=== PATIENT | female | born 1985 | race Caucasian/White ===

== ENCOUNTER 2018-01-16 11:08 | Emergency (ER) | payer OTHER, SELFPAY ==
--- NOTE | 2018-01-16 | DI.US.S_ITS ---
PROCEDURE: US PELVIC COMPLETE INDICATIONS: LEFT PELVIC PAIN TECHNIQUE: Real-time scanning was performed of the pelvic organs, with image documentation. Additional endovaginal scanning was necessary due to incomplete visualization of the adnexal and endometrial structures by transabdominal scanning. COMPARISON: None. FINDINGS: Transabdominal scanning: Limited scanning through the kidneys shows no hydronephrosis. No pathologic free abdominal or pelvic fluid. Endovaginal scanning: Uterus: Uterus is normal in size at 3.3 x 4.9 x 7.8 cm, anteverted. The endometrium measures 5.5 mm in combined thickness. Ovaries: The right ovary measures 2.1 x 1.7 x 2.9 cm, and the left measures 2.1 x 2.6 x 3.5 cm with a minimally complex internal 2.3 cm maximum dimension cyst. No solid lesions are found. IMPRESSION: Normal-appearing uterus and right ovary, minimally complex left ovarian cyst measures up to 2.3 cm in maximal dimension. No abnormal free fluid is seen throughout the peritoneal space. Dictated by: Mohamud Wellington M.D. on 01/16/2018 at 13:09 Approved by: Mohamud Wellington M.D. on 01/16/2018 at 13:11
[2018-01-16 11:20] VITALS: BP 115/63; PULSE 71; RESP 18; TEMP 36.6; O2SAT 100; BMI 23.6
[2018-01-16 11:56] LABS: Bacteria Urine None Seen
[2018-01-16] MEDS: SODIUM CHLORIDE 0.9% 1,000 ML 1000 ML IV (11:57)
[2018-01-16] MEDS: KETOROLAC 15 MG/ML VIAL IV (11:57)
[2018-01-16] MEDS: ONDANSETRON 4 MG/2 ML INJ IV (11:57)
--- NOTE | 2018-01-16 12:05 | DI.US.S_ITS ---
PROCEDURE: US RENAL COMPLETE INDICATIONS: L flank pain, hematuria, stone? TECHNIQUE: Real-time scanning was performed of the kidneys and bladder, with image documentation. COMPARISON: None. FINDINGS: Kidneys: Kidneys are normal in size. Right kidney measures 10.9 cm long; left kidney measures 12.0 cm long. Right renal cortical thickness is 1.4 cm; left renal cortical thickness is 1.5 cm. Renal cortical echotexture is normal. No hydronephrosis or nephrolithiasis. No suspicious solid mass lesions. Bladder: Pre-void bladder volume is 59 mL. Post-void residual is 0 mL. Pre-void images demonstrate no intraluminal masses or stones. On pre-void images, neither ureteral jets are noted with color Doppler interrogation. (Of note, ureteral jets may not be detectable in up to 25% of cases due to insufficient differences in specific gravity between ureteral and bladder urine). Miscellaneous: No free pelvic fluid. IMPRESSION: No hydronephrosis or nephrolithiasis found. Normal bladder function. Source of pain is not seen. Dictated by: Mohamud Wellington M.D. on 01/16/2018 at 13:08 Approved by: Mohamud Wellington M.D. on 01/16/2018 at 13:09
--- NOTE | 2018-01-16 12:06 | PC.NURSE ---
Pain started on Saturday in left flank. could not get comfortable. Saw PA who ordered CT scan. Awaiting authorization for CT but pain is now LLQ. Hurts more to move. Poor appetite, decreased po intake.
[2018-01-16 12:09] LABS: Amorphous Sediment Urine 2+; Culture Indicated Urine Cult Not Indicated; RBC Urine 0-1/HPF (0-5/HPF); Squamous Epithelial Cell Urine 0-1 /HPF; WBC Urine 0-1/HPF (0-5/HPF)
[2018-01-16 12:09] LABS: Add Manual Diff / Slide Review NO; Basophils Percent Auto 0.4 % (0-2); Eosinophils Percent Auto 0.1 % (2-4); Hematocrit 39.6 % (36-46); Hemoglobin 13.8 g/dL (12.0-16.0); Mean Corpuscular HGB Conc 34.7 % (30-36); Mean Corpuscular Hemoglobin 31.2 PG (26-34); Mean Corpuscular Volume 89.9 fL (80-100); Neutrophils Absolute Auto 11300 /uL (3000-5900); Neutrophils Percent Auto 80.5 % (50-75); Platelet Count 208 X10^3/uL (150-400); Red Blood Cell Count 4.41 X10^6/uL (4.0-5.2); Red Cell Distribution Width 11.9 % (11.6-14.8)
[2018-01-16 12:21] LABS: Blood Urea Nitrogen 13 mg/dL (7-17); Calcium 9.3 mg/dL (8.4-10.2); Carbon Dioxide 24 mmol/L (22-32); Chloride 101 mmol/L (98-107); Estimated Glomerular Filt Rate > 60.0 mL/min (>60); Glucose 88 mg/dL (70-100); HEMOLYSIS 44 (0-50); Potassium 4.3 mmol/L (3.4-5.1); Sodium 140 mmol/L (137-145)
[2018-01-16 12:44] VITALS: BP 114/52; PULSE 72; RESP 16; O2SAT 99
--- NOTE | 2018-01-16 19:18 | ED_ITS ---
HPI - Female Genitourinary General Chief complaint: Urogenital-Female Stated complaint: LEFT PELVIS PAIN Time Seen by Provider: 01/16/18 11:40 Source: patient Mode of arrival: ambulatory Limitations: no limitations History of Present Illness HPI Narrative: Patient presents to the emergency department today with a chief complaint of left flank pain that has radiated into her left groin. She denies any injury nor fever or chills. She denies dysuria, frequency or urgency. She was seen at the walk-in clinic and had blood in her urine and had an outpatient CT ordered for CT scan. She states at times the pain is very intense than others is rather mild. She denies provocation or palliation of the pain, stating it has gotten line of its own. Her left lower quadrant pain became much more severe today and she is on clear if they are related MD Complaint: pelvic pain Onset (ago): day(s) Location: LLQ Female Urogenital Radiation: L Flank Severity: moderate Quality: Burning Duration: intermittent Relieving factors: none Exacerbating factors: none Associated symptoms: fever/chills Related Data Previous Rx's Medication Instructions Recorded hydrocodone-acetaminophen 1 tab PO Q4-6H PRN #14 tab 01/16/18 ketorolac 10 mg PO Q6H #14 tab 01/16/18 ondansetron [Zofran ODT] 4 mg PO Q6H PRN #20 tab 01/16/18 Allergies Allergy/AdvReac Type Severity Reaction Status Date / Time No Known Drug Allergies Allergy Verified 01/16/18 11:19 Review of Systems Review of Systems All systems reviewed & are unremarkable except as noted in HPI and below Constitutional Denies chills, Denies fever(s), Denies lethargy and Denies weakness Eyes Denies change in vision, Denies eye discharge, Denies irritation and Denies loss of vision ENT Ears, Nose, Mouth, and Throat: Denies change in voice, Denies neck pain and Denies sore throat Cardiovascular Denies chest pain, Denies irregular heart rhythm, Denies lightheadedness, Denies palpitations, Denies dyspnea, Denies dyspnea on exertion and Denies orthopnea Respiratory Denies cough, Denies dyspnea, Denies dyspnea on exertion and Denies wheezing Gastrointestinal Gastrointestinal: Reports abdominal pain, Denies change in bowel habits, Denies diarrhea, Denies nausea and Denies vomiting Genitourinary Denies hematuria, Denies flank pain, Denies urinary incontinence and Denies urinary urgency Musculoskeletal Denies neck pain Integumentary/Breasts Denies pruritus, Denies erythema, Denies rash and Denies wounds Neurologic Denies confusion, Denies loss of vision and Denies weakness Psychiatric Denies anxiety, Denies confusion, Denies depression, Denies homicidal ideation and Denies suicidal ideation Endocrine Denies palpitations Hematologic/Lymphatic Denies easy bruising Allergic/Immunologic Denies wheezing [facility] Social History Smoking Status: Never smoker Exam Initial Vital Signs Initial Vital Signs: Vital Signs Temperature 97.8 F 01/16/18 11:20 Pulse Rate 71 01/16/18 11:20 Respiratory Rate 18 01/16/18 11:20 Blood Pressure 115/63 01/16/18 11:20 Pulse Oximetry 100 01/16/18 11:20 Const General: cooperative and well developed Nutritional Appearance: well nourished Orientation: alert, awake, oriented x3 and not confused HENMT Head: normocephalic and atraumatic Ears: external ears normal and TM's normal bilaterally Nose: external nose normal and No nasal discharge Face and sinus: sinuses nontender, face symmetric, no sinus tenderness and No dry mucous membranes Mouth: oral mucosae normal and moist mucous membranes Teeth and gingiva: dentition normal Throat: tonsils normal and uvula midline Resp Effort & Inspection: normal respiratory effort, able to speak in complete sentences, no respiratory distress and no use of accessory muscles Auscultation: clear to auscultation bilaterally, no rales, no rhonchi and no wheezes GI Inspection: non-distended Palpation: soft, no hepatosplenomegaly, No guarding, No pulsatile mass and tender (Mild tenderness in left lower quadrant) Auscultation: normal bowel sounds Back/Spine/Pelvis Back: No CVA tenderness Cervical Spine: cervical ROM normal and No pain with cervical ROM Thoracic/Lumbar Spine: thoracic and lumbar spine normal to inspection Skin General: no rashes or lesions noted, No jaundice and No petechiae Extrem General: full ROM, no clubbing, cyanosis or edema, no pedal edema and no calf tenderness Course Orders Ordered: ED Orders 01/16/18 11:41 Urine Microscopic Stat 01/16/18 11:55 Basic Metabolic Panel Stat Complete Blood Count AUTO DIFF Stat 01/16/18 12:05 US renal complete Stat Discontinued Medications Sodium Chloride (Normal Saline 0.9%) 1,000 mls @ 1,000 mls/hr IV BOLUS ONE Stop: 01/16/18 12:51 Last Infusion: 01/16/18 12:48 Dose: 0 mls/hr Admin: 01/16/18 11:57 Dose: 1,000 mls/hr Ketorolac Tromethamine (Toradol) 15 mg IV NOW ONE Stop: 01/16/18 11:53 Last Admin: 01/16/18 11:57 Dose: 15 mg Ondansetron HCl (Zofran) 4 mg IV Q4HR PRN PRN Reason: Nausea And Vomiting Last Admin: 01/16/18 11:57 Dose: 4 mg Vital Signs - 8 hr 01/16/18 11:20 01/16/18 12:44 Temperature 97.8 F Pulse Rate 71 72 Respiratory Rate 18 16 Blood Pressure 115/63 Blood Pressure [Left Arm] 114/52 L Pulse Oximetry 100 99 MDM - Female Genitourinary Differential Diagnosis Likely urinary tract infection, ovarian cyst and dysmenorrhea Medical Records Attestation: I reviewed the patient's medical records. Lab Data Result diagrams: 01/16/18 11:55 01/16/18 11:55 Lab Results 01/16/18 01/16/18 01/16/18 Range/Units 11:41 11:55 11:55 WBC 14.0 H (4.5-11.0) X10^3/uL RBC 4.41 (4.0-5.2) X10^6/uL Hgb 13.8 (12.0-16.0) g/dL Hct 39.6 (36-46) % MCV 89.9 (80-100) fL MCH 31.2 (26-34) PG MCHC 34.7 (30-36) % RDW 11.9 (11.6-14.8) % Plt Count 208 (150-400) X10^3/uL Neut % (Auto) 80.5 H (50-75) % Lymph % (Auto) 13.0 L (25-40) % [place] % (Auto) 6.0 (3-14) % Eos % (Auto) 0.1 L (2-4) % Baso % (Auto) 0.4 (0-2) % Neut # (Auto) 69771 H (5971-6297) /uL Sodium 140 (137-145) mmol/L Potassium 4.3 (3.4-5.1) mmol/L Chloride 101 (98-107) mmol/L Carbon Dioxide 24 (22-32) mmol/L BUN 13 (7-17) mg/dL Creatinine 0.50 L (0.52-1.04) mg/dL Estimated GFR > 60.0 (>60) mL/min BUN/Creatinine Ratio 26.0 H (6-22) Glucose 88 (70-100) mg/dL Calcium 9.3 (8.4-10.2) mg/dL Urine RBC 0-1/hpf (0-5/HPF) Urine WBC 0-1/hpf (0-5/HPF) Ur Squamous Epith Cells 0-1 /hpf Amorphous Sediment 2+ Urine Bacteria None seen (None) Ur Culture Indicated? Cult not indicated Micro UA Comment Not Reportable Imaging Data Renal US: Radiologist's impression: PROCEDURE: US RENAL COMPLETE INDICATIONS: L flank pain, hematuria, stone? TECHNIQUE: Real-time scanning was performed of the kidneys and bladder, with image documentation. COMPARISON: None. FINDINGS: Kidneys: Kidneys are normal in size. Right kidney measures 10.9 cm long; left kidney measures 12.0 cm long. Right renal cortical thickness is 1.4 cm; left renal cortical thickness is 1.5 cm. Renal cortical echotexture is normal. No hydronephrosis or nephrolithiasis. No suspicious solid mass lesions. Bladder: Pre-void bladder volume is 59 mL. Post-void residual is 0 mL. Pre- void images demonstrate no intraluminal masses or stones. On pre-void images, neither ureteral jets are noted with color Doppler interrogation. (Of note, ureteral jets may not be detectable in up to 25% of cases due to insufficient differences in specific gravity between ureteral and bladder urine). Miscellaneous: No free pelvic fluid. IMPRESSION: No hydronephrosis or nephrolithiasis found. Normal bladder function. Source of pain is not seen. Dictated by: Mohamud Wellington M.D. on 01/16/2018 at 13:08 Approved by: Mohamud Wellington M.D. on 01/16/2018 at 13:09 Pelvic US: Radiologist's impression: PROCEDURE: US PELVIC COMPLETE INDICATIONS: LEFT PELVIC PAIN TECHNIQUE: Real-time scanning was performed of the pelvic organs, with image documentation. Additional endovaginal scanning was necessary due to incomplete visualization of the adnexal and endometrial structures by transabdominal scanning. COMPARISON: None. FINDINGS: Transabdominal scanning: Limited scanning through the kidneys shows no hydronephrosis. No pathologic free abdominal or pelvic fluid. Endovaginal scanning: Uterus: Uterus is normal in size at 3.3 x 4.9 x 7.8 cm, anteverted. The endometrium measures 5.5 mm in combined thickness. Ovaries: The right ovary measures 2.1 x 1.7 x 2.9 cm, and the left measures 2.1 x 2.6 x 3.5 cm with a minimally complex internal 2.3 cm maximum dimension cyst. No solid lesions are found. IMPRESSION: Normal-appearing uterus and right ovary, minimally complex left ovarian cyst measures up to 2.3 cm in maximal dimension. No abnormal free fluid is seen throughout the peritoneal space. Dictated by: Mohamud Wellington M.D. on 01/16/2018 at 13:09 Approved by: Mohamud Wellington M.D. on 01/16/2018 at 13:11 Discharge Plan Departure Patient Disposition: Home, Self-Care Clinical Impression: Ovarian cyst, Kidney calculi Discharge Date/Time: 01/16/18 13:26 Interventions: ED Discharge Assessment Last Done: 01/16/18 13:26 Instructions: DI for Ovarian Cyst Prescriptions: New ketorolac 10 mg tablet 10 mg PO Q6H Qty: 14 RF: 0 ondansetron [Zofran ODT] 4 mg tablet,disintegrating 4 mg PO Q6H PRN (Reason: nausea and vomiting) Qty: 20 RF: 0 hydrocodone-acetaminophen 5-325 mg tablet 1 tab PO Q4-6H PRN (Reason: pain) Qty: 14 RF: 0 Referrals: Radha Jones MD [Primary Care Provider] -
== END 2018-01-16 13:26 | disposition home or self-care (01) ==
PROVIDERS: Emergency Provider Emergency Medicine; PCP Family Medicine
DX: N83.209 Unspecified ovarian cyst, unspecified side (principal); N20.0 Calculus of kidney
CPT/HCPCS: 36591; 76770; 76830; 76856; 80048; 81003; 81015; 81025; 85025; 96361; 96374; 96375; 99283; 99284; J1885; J2405

== ENCOUNTER → 2018-11-12 11:50 | Outpatient (REF) | payer OTHER, SELFPAY ==
[2018-11-12 13:28] LABS: Urine N gonorrhoeae NOT DETECTED
[2018-11-12 14:53] LABS: Urine Chlamydia NOT DETECTED
== END ==
LOC: LAB 11:50
PROVIDERS: PCP Family Medicine; Visit Provider Obstetrics & Gynecology
DX: Z34.81 Encounter for supervision of other normal pregnancy, first trimester (principal); Z3A.08 8 weeks gestation of pregnancy
CPT/HCPCS: 87491; 87591

== ENCOUNTER → 2018-11-24 09:42 | Outpatient (CLI) | payer OTHER, SELFPAY ==
[2018-11-24 11:15] LABS: Add Manual Diff / Slide Review NO; Basophils Absolute Auto 100 /uL (0-100); Eosinophils Absolute Auto 100 /uL (0-450); Eosinophils Percent Auto 0.6 % (2-4); Hematocrit 41.4 % (36-46); Hemoglobin 13.9 g/dL (12.0-16.0); Lymphocytes Absolute Auto 2500 /uL (1100-4500); Lymphocytes Percent Auto 27.1 % (25-40); Mean Corpuscular HGB Conc 33.5 % (30-36); Mean Corpuscular Hemoglobin 30.7 PG (26-34); Mean Corpuscular Volume 91.7 fL (80-100); Monocytes Absolute Auto 600 /uL (0-900); Monocytes Percent Auto 6.9 % (3-14); Neutrophils Absolute Auto 6100 /uL (1500-7000); Neutrophils Percent Auto 64.4 % (50-75); Platelet Count 245 X10^3/uL (150-400); Red Blood Cell Count 4.52 X10^6/uL (4.0-5.2); Red Cell Distribution Width 12.7 % (11.6-14.8); White Blood Cell Count 9.4 X10^3/uL (4.5-11.0)
[2018-11-24 11:27] LABS: Appearance Urine UA CLEAR; Bilirubin Urine UA NEGATIVE (NEGATIVE); Color Urine UA YELLOW; Glucose Urine UA NEGATIVE (Negative); Ketones Urine UA NEGATIVE (NEGATIVE); Leukocyte Esterase Urine UA NEGATIVE (NEGATIVE); Nitrite Urine UA NEGATIVE (Negative); Occult Blood Urine UA NEGATIVE (Negative); Protein Urine UA NEGATIVE (Negative); Specific Gravity Urine UA <=1.005 (1.000-1.035); Urobilinogen Urine UA 0.2 E.U./dL (0.2)
[2018-11-25 16:47] LABS: Hepatitis B Surface Antigen NEGATIVE s/c (NEGATIVE)
[2018-11-25 17:00] LABS: HIV 1 and 2 Antibody NEGATIVE (NEGATIVE); Hep C Virus Ab w/Reflex Quant NEGATIVE s/c (NEGATIVE)
[2018-11-29 00:08] LABS: RPR Screen Nonreactive (Nonreactive)
[2018-12-02 08:10] LABS: Informaseq SEE SEPARATE REPORTS
== END ==
PROVIDERS: Obstetrics & Gynecology; PCP Family Medicine; Visit Provider Specialist
DX: Z34.81 Encounter for supervision of other normal pregnancy, first trimester (principal); Z82.79 Family history of other congenital malformations, deformations and chromosomal abnormalities
CPT/HCPCS: 36415; 80055; 81003; 81507; 86703; 86787; 86803; 86850; 86900; 86901; 87086

== ENCOUNTER → 2019-01-05 14:49 | Outpatient (CLI) | payer OTHER, SELFPAY ==
[2019-01-09 14:35] LABS: AFP, Serum 51.1 ng/mL; Calc Gestational Age 16.4; Est Date Determined by US; Maternal Weight 160 lbs; Mother Ethnic Origin OTHER; Number of Fetuses 1; Prev Pregnancies Down Syndrome NOT GIVEN
== END ==
PROVIDERS: PCP Family Medicine; Visit Provider Obstetrics & Gynecology
DX: Z34.02 Encounter for supervision of normal first pregnancy, second trimester (principal)
CPT/HCPCS: 36415; 82105

== ENCOUNTER → 2019-01-30 15:23 | Outpatient (CLI) | payer OTHER, SELFPAY ==
--- NOTE | 2019-01-30 15:24 | DI.US.S_ITS ---
PROCEDURE: US OB >= 14 WEEKS FETUS INDICATIONS: ANATOMY SURVEY OUTSIDE/PRIOR DATING DATA: Last menstrual period (LMP): 09/11/18. LMP-based estimated date of delivery (TEMO): 06/18/19. First dating scan (date and location): 11/11/18,. Estimated date of delivery (TEMO) from first dating scan: 06/18/19. TECHNIQUE: Real-time scanning was performed of the fetus, with image documentation and biometric measurements. Endovaginal scanning: For better visualization of the cervix and placenta edge. COMPARISON: None. FINDINGS: General: A single living intrauterine gestation is present. Presentation: Breech. Placenta: Placental position is posterior and low-lying. The edge is 2.0 cm from the internal cervical os. Amniotic fluid index: 15.3 cm, normal range is 5-24 cm. heart rate: 149 beats per minute. Maternal cervical canal: 4.1 cm long. biometrics: Biparietal diameter: 4.8 cm, 20 weeks, 3 days Head circumference: 17.8 cm, 20 weeks, 2 days Abdominal circumference: 15.7 cm, 20 weeks, 6 days Femur length: 3.2 cm, 19 weeks, 6 days Estimated gestational age from initial scan: not applicable. Composite gestational age from present scan: 20 weeks, 2 days Estimated weight and percentile: 351 g plus or -52 g, 60th percentile Anatomic survey: Neuro: Ventricles are non-dilated at less than 10 mm. Cisterna magna is normal at 3-11 mm. Cerebellum is normal in size and morphology. Nuchal skin fold: Normal at less than 6 mm between 14-21 weeks gestational age. Face: Nose and lips, are normal. Facial profile is not seen. Spine: Not well seen due to motion Heart: 4-chambered heart is present, ventricular outflow tracts were difficult to identify in due to lack of acoustic window Diaphragm: Diaphragm is intact. Stomach: Left-sided stomach is present. Kidneys: No hydronephrosis. Normal is less than 5 mm in 2nd trimester, less than 7 mm in 3rd trimester. Cord: 3-vessel cord has orthotopic insertion. Bladder: Normal in size. Extremities: All 4 extremities identified. IMPRESSION: 1. Single living intrauterine with a composite gestational age of 20 weeks, 2 days, in agreement with the previously assigned gestational age. 2. Symmetric growth. 3. Posterior, low-lying placenta as 2.0 cm away from the internal cervical loss. Followup exam of the third trimester for placental migration is recommended. 4. Suboptimal visualization of facial profile, cardiac ventricular outflow tracts and skin covering the spine. A followup ultrasound in one to 2 weeks for reassessment is recommended. Dictated by: Radha Siegel M.D. on 01/30/2019 at 18:54 Approved by: Radha Siegel M.D. on 01/30/2019 at 19:11
== END ==
PROVIDERS: PCP Family Medicine; Visit Provider Obstetrics & Gynecology
DX: Z34.02 Encounter for supervision of normal first pregnancy, second trimester (principal); Z3A.20 20 weeks gestation of pregnancy
CPT/HCPCS: 76811; 76817

== ENCOUNTER → 2019-02-04 08:59 | Outpatient (CLI) | payer OTHER, SELFPAY ==
--- NOTE | 2019-02-04 08:59 | DI.US.S_ITS ---
PROCEDURE: US OB FOLLOW UP INDICATIONS: RE-EVALUATE HEART, PROFILE, SPINE OUTSIDE/PRIOR DATING DATA: Last menstrual period (LMP): Unknown. LMP-based estimated date of delivery (TEMO): N./A. First dating scan (date and location): 11/11/18. Estimated date of delivery (TEMO) from first dating scan: 06/18/19. TECHNIQUE: Real-time scanning was performed of the fetus, with image documentation and biometric measurements. Endovaginal scanning: No COMPARISON: [facility], OB >= 14 WEEKS FETUS, 01/30/2019, 15:38. [facility], OB <= 14 WEEKS FETUS, 12/09/2018, 16:34. [facility], , US OB < 14 WEEKS, 11/11/2018, 16:49. FINDINGS: General: A single living intrauterine gestation is present. Presentation: Vertex. Placenta: Placental position is posterior, with low-lying placenta with the inferior margin roughly 2.7 cm above the internal cervical os. heart rate: 149 beats per minute. Maternal cervical canal: 3.7 cm long. Normal lower limit is 2.5 cm. Expected gestational age by prior ultrasound: 21 weeks 0 days Normal appearance of the spine, facial profile, 4 chamber heart and cardiac outflow tracts. IMPRESSION: 1. Single living IUP redemonstrated and today's exam demonstrating normal appearance of the spine, profile and heart. 2. Low lying placenta. Followup recommended. Dictated by: Yogesh PACHECO Interpreted: Anca Villasenor MD on 02/04/2019 at 10:07 Approved by: Anca Villasenor MD, PhD on 02/04/2019 at 10:16
== END ==
PROVIDERS: PCP Family Medicine; Visit Provider Obstetrics & Gynecology
DX: Z36.89 Encounter for other specified antenatal screening (principal); Z3A.22 22 weeks gestation of pregnancy
CPT/HCPCS: 76816

== ENCOUNTER → 2019-03-18 11:19 | Outpatient (CLI) | payer OTHER, SELFPAY ==
[2019-03-18 13:22] LABS: Hematocrit 38.6 % (36-46)
[2019-03-18 13:31] LABS: GTT (PREG) 1 Hour PP 50gm Dose 112 mg/dL (76-139)
== END ==
PROVIDERS: PCP Family Medicine; Visit Provider Obstetrics & Gynecology
DX: Z34.02 Encounter for supervision of normal first pregnancy, second trimester (principal)
CPT/HCPCS: 36415; 82950; 85014; 85018

== ENCOUNTER → 2019-05-20 17:08 | Outpatient (CLI) | payer OTHER, SELFPAY ==
[2019-05-21 15:10] LABS: Strep Grp B PCR NEG for Grp B Strep
== END ==
PROVIDERS: PCP Family Medicine; Visit Provider Obstetrics & Gynecology
DX: Z34.03 Encounter for supervision of normal first pregnancy, third trimester (principal); Z36.85 Encounter for antenatal screening for Streptococcus B; Z3A.35 35 weeks gestation of pregnancy
CPT/HCPCS: 87653

== ENCOUNTER 2019-06-17 07:10 | Inpatient (IN) | payer OTHER, SELFPAY ==
[2019-06-17 09:11] LABS: Add Manual Diff / Slide Review NO; Basophils Absolute Auto 100 /uL (0-100); Basophils Percent Auto 0.5 % (0-2); Eosinophils Absolute Auto 0 /uL (0-450); Eosinophils Percent Auto 0.2 % (2-4); Hematocrit 37.2 % (36-46); Hemoglobin 12.8 g/dL (12.0-16.0); Lymphocytes Absolute Auto 2100 /uL (1100-4500); Lymphocytes Percent Auto 15.1 % (25-40); Mean Corpuscular HGB Conc 34.5 % (30-36); Mean Corpuscular Hemoglobin 30.4 PG (26-34); Mean Corpuscular Volume 88.1 fL (80-100); Monocytes Absolute Auto 800 /uL (0-900); Monocytes Percent Auto 6.1 % (3-14); Neutrophils Absolute Auto 10700 /uL (1500-7000); Neutrophils Percent Auto 78.1 % (50-75); Platelet Count 194 X10^3/uL (150-400); Red Blood Cell Count 4.23 X10^6/uL (4.0-5.2); Red Cell Distribution Width 13.2 % (11.6-14.8); White Blood Cell Count 13.7 X10^3/uL (4.5-11.0)
[2019-06-17] MEDS: OXYTOCIN PREMIX 30 UNIT/500 ML PLAST..BAG IV (09:12)
[2019-06-17] MEDS: LACTATED RINGERS 1,000 ML 100 ML IV ×3 (09:12→21:06)
[2019-06-17 13:51] VITALS: BP 126/64
[2019-06-17] MEDS: FENT 2MCG/ML BUPIV 0.125% EPI 200 MCG/100 ML PLAST..BAG 10 MCG EPIDURAL (18:30)
--- NOTE | 2019-06-17 23:37 | PM.OBHP.1 ---
OB HPI Date/Time Date of admission: 06/17/19 Date Patient Seen: 06/17/19 Time Patient Seen: 12:45 History of Present Condition Chief complaint: EVALUATION : 2 Para: 0 Estimated Date of Delivery: 06/19/19 Estimated Gestational Age (weeks): 39+5 Narrative: Nitza Riojas is a 34 year old female 2 para 0 at 39-,5/7 weeks gestation for induction of labor Indications Indication for induction OB: maternal discomfort History of Present care: good care, initiated at week # (8), number of visits (12) and pounds weight gain (38) Dating criteria: LMP confirmed by 1st trimester US Ultrasounds: normal 1st trimester US and normal mid trimester US Obstetrical complications: none Medical complications: genitourinary (Interstitial cystitis, polycystic ovaries) and neurological (Migraine) Preadmission Labs Blood type: O (+) positive -: Antibody screen: negative, GBS status: negative, HBsAG: negative, HIV: negative and RPR/VDLR: negative -: Chlamydia screen: not detected and Gonorrhea screen: not detected -: Rubella: immune and Varicella: immune HCT: 38.6 HCAB: negative PAP: Normal Cell-free DNA: Normal, AFP normal Urine: No growth 1 hr GTT: 112 Prior (ies) History: EAB Evaluation Evaluation Baseline heart rate: 140 Variability: Moderate (11-25) monitor accelerations: Present monitor decelerations: Absent Category of Tracing: I Cervical dilation (cm): 1 Cervical effacement (%): 85 station: 0 Laboratory results: Laboratory Tests 06/17/19 06/17/19 06/17/19 09:00 09:00 09:00 WBC 13.7 H Cancelled RBC 4.23 Cancelled Hgb 12.8 Cancelled Hct 37.2 Cancelled MCV 88.1 Cancelled MCH 30.4 Cancelled MCHC 34.5 Cancelled RDW 13.2 Cancelled Plt Count 194 Cancelled Neut % (Auto) 78.1 H Cancelled Lymph % (Auto) 15.1 L Cancelled [place] % (Auto) 6.1 Cancelled Eos % (Auto) 0.2 L Cancelled Baso % (Auto) 0.5 Cancelled Neut # (Auto) 76903 H Cancelled Lymph # (Auto) 2100 Cancelled [place] # (Auto) 800 Cancelled Eos # (Auto) 0 Cancelled Baso # (Auto) 100 Cancelled Blood Type O Positive Antibody Screen Negative 06/17/19 09:00 WBC RBC Hgb Hct MCV MCH MCHC RDW Plt Count Neut % (Auto) Lymph % (Auto) [place] % (Auto) Eos % (Auto) Baso % (Auto) Neut # (Auto) Lymph # (Auto) [place] # (Auto) Eos # (Auto) Baso # (Auto) Blood Type Cancelled Antibody Screen Cancelled [facility] Social History Smoking Status: Never smoker Meds Home Medications and Allergies Home Medications Medication Instructions Recorded Confirmed Type prenat.vits,ulises,kbr-wyug-giimd 1 tab PO DAILY 11/05/18 06/17/19 History Allergies Allergy/AdvReac Type Severity Reaction Status Date / Time No Known Drug Allergies Allergy Verified 05/20/19 16:49 Exam Vital Signs (past 8 hours): Generally: No acute distress Lungs: Clear to auscultation bilaterally Cardiovascular: Regular rate and rhythm Fundal height: 39 cm Estimated weight: 7 and half to 8 lb Extremities: Trace edema, negative Homans Objective Labs Result Diagrams: 06/17/19 09:00 Labs: Laboratory Results - last 24 hr 06/17/19 06/17/19 06/17/19 09:00 09:00 09:00 WBC 13.7 H Cancelled RBC 4.23 Cancelled Hgb 12.8 Cancelled Hct 37.2 Cancelled MCV 88.1 Cancelled MCH 30.4 Cancelled MCHC 34.5 Cancelled RDW 13.2 Cancelled Plt Count 194 Cancelled Neut % (Auto) 78.1 H Cancelled Lymph % (Auto) 15.1 L Cancelled [place] % (Auto) 6.1 Cancelled Eos % (Auto) 0.2 L Cancelled Baso % (Auto) 0.5 Cancelled Neut # (Auto) 32221 H Cancelled Lymph # (Auto) 2100 Cancelled [place] # (Auto) 800 Cancelled Eos # (Auto) 0 Cancelled Baso # (Auto) 100 Cancelled Blood Type O Positive Antibody Screen Negative 06/17/19 09:00 WBC RBC Hgb Hct MCV MCH MCHC RDW Plt Count Neut % (Auto) Lymph % (Auto) [place] % (Auto) Eos % (Auto) Baso % (Auto) Neut # (Auto) Lymph # (Auto) [place] # (Auto) Eos # (Auto) Baso # (Auto) Blood Type Cancelled Antibody Screen Cancelled Assessment and Plan Assessment and Plan Assessment and Plan narrative: Assessment: 34-year-old 2 para 0 at 39-,5/7 weeks gestation for induction of labor Plan: Pitocin per protocol 2 Artificial rupture membranes when patient has made some cervical change Epidural as necessary Expected management to spontaneous vaginal delivery Time Spent with Patient Total time spent with greater than 50% in coordination of care (as documented) at patient's floor/unit and/or counseling patient:: 15-24 minutes
[2019-06-18] MEDS: ONDANSETRON 4 MG/2 ML INJ IV (02:15)
[2019-06-18] MEDS: METHYLERGONOVINE 0.2 MG/ML VIAL IM (02:35)
--- NOTE | 2019-06-18 02:45 | PM.OBPRVD ---
 Events: Labor Induction Labor & Delivery Delivery date: 06/18/19 Cervical ripening method: none Induction method: per pitocin protocol Delivery augmentation: rupture of membranes Delivery monitor: external FHT and external uterine Route of delivery: vacuum extraction Indication for instrumentation: maternal exhaustion Episiotomy description: None L&D Laceration Description: Perineal - 2nd Degree Delivery repair: vicryl (2-0) and chromic (2-0) Estimated blood loss (mL): 800 Anesthesia type: Epidural Complications: Retained placenta requiring manual removal Narrative: Patient complete and pushed for approximately 2 hours. Vacuum was placed due to significant maternal exhaustion. At 1:02 a.m. a live female delivered spontaneously over an intact perineum. A nuchal cord x1 was reduced on the perineum. The remainder of the body delivered without difficulty and was placed on mom's abdomen. After the cord stopped pulsing, the cord was double clamped and cut. Cord bloods were obtained. After almost an hour, manual extraction of the placenta was required after patient received Nesacaine through the epidural. With manual extraction the placenta was intact. Pitocin was given in the IV fluids prior to placental removal. The fundus was massaged to firm after the placenta was removed. A second-degree perineal laceration was repaired in the usual fashion. A Wagner catheter was placed into the bladder. A rectal exam was performed and there were no tears into the rectum. Apgars 8 at 1 minute and 9 at 5 minutes. Estimated blood loss 800 cc by Q BL. . Mom required 1 dose of ephedrine due to low blood pressure and feeling nauseous after the Nesacaine. Epidural analgesia. Mom and infant are stable to recovery. Plan for aftercare: Watchful care
[2019-06-18] MEDS: IBUPROFEN 600 MG TABLET PO ×4 (03:19→21:54)
[2019-06-18] MEDS: OXYCODONE/ACETAMINOPHEN 5/325 TABLET 2 TAB PO ×3 (03:19→14:24)
[2019-06-18] MEDS: PRENATAL VIT,CALC/IRON/FOLIC 1 TABLET 1 TAB PO (10:02)
[2019-06-18] MEDS: DOCUSATE 250 MG CAPSULE PO (10:05)
[2019-06-18 15:12] LABS: Hemoglobin 9.1 g/dL (12.0-16.0)
--- NOTE | 2019-06-18 16:08 | PM.OBPN.1 ---
Subjective - OB Subjective Patient comments: no complaints [place] baby status: nursing well feeding status: exclusively breast feeding Date Patient Seen: 06/18/19 Time Patient Seen: 16:08 Exam Vital Signs (past 8 hours): Generally: Patient holding infant, nursing infant, no acute distress Fundus: Firm at U -1 Extremities: Negative Homans, no edema Objective Labs Result Diagrams: 06/18/19 15:03 Labs: Laboratory Results - last 24 hr 06/18/19 15:03 Hgb 9.1 L Hct 27.0 L Assessment & Plan Plan day: 0 plan OB: routine care Time Spent With Patient Time: Total time spent is greater than 50% in coordination of care (as documented) at patient's floor/unit and/or counseling patient: Time with patient: 15-24 minutes
[2019-06-18] MEDS: OXYCODONE/ACETAMINOPHEN 5/325 TABLET 1 TAB PO ×2 (18:47→23:08)
[2019-06-18] MEDS: LANOLIN OINT 7 GM 1 APPLIC TOP (23:09)
[2019-06-19] MEDS: OXYCODONE/ACETAMINOPHEN 5/325 TABLET 1 TAB PO ×2 (02:54→12:33)
[2019-06-19] MEDS: IBUPROFEN 600 MG TABLET PO ×2 (06:58→12:34)
[2019-06-19] MEDS: OXYCODONE/ACETAMINOPHEN 5/325 TABLET 2 TAB PO (07:53)
--- NOTE | 2019-06-19 08:06 | P.DS_ITS ---
Discharge Providers Provider Date of admission: 06/17/19 07:10 Discharge Date: 06/19/19 Primary care physician: Radha Jones MD Consults: 06/18/19 02:58 Consult to Station Installer And Repairer Routine Comment: Discharge provider: Samia Calero MD Summary Hospital Course Date Patient Seen: 06/19/19 Time Patient Seen: 08:00 Hospital Course: Patient was admitted for induction at 39 weeks for maternal discomfort. She received an epidural catheter for pain control. She had a vacuum assisted vaginal delivery for maternal exhaustion. She had repair of a second-degree tear. She did well . She is breast-feeding with complaints of nipple pain and cramping. She is urinating and ambulating well. She denies any signs or symptoms of preeclampsia. Peripartum Data Infant Delivery Method: Assisted Delivery (Vacuum) Laceration description: Perineal - 2nd Degree Procedures: Pitocin induction, epidural catheter, vacuum assisted vaginal delivery, repair of second-degree tear. complications: none [place] 1: Gender: Female Disposition of : home Discharge Diagnosis (1) Vacuum-assisted vaginal delivery: Status: Acute (2) Acute blood loss anemia: Status: Acute Status at Discharge Cognitive/behavioral status at discharge: oriented Functional status at discharge: independent ambulation Overall status at discharge: patient is progressing back to baseline Time Spent with Patient Time attestation: Total time spent providing and/or coordinating discharge services: Time spent: Less than 30 minutes Objective Labs Result Diagrams: 06/18/19 15:03 Labs: Laboratory Results - last 24 hr 06/18/19 15:03 Hgb 9.1 L Hct 27.0 L Exam Vital Signs (past 8 hours): Blood pressure 109/64, pulse 73, temperature 98.3? Narrative Exam Narrative: Abdomen is soft, nontender. Uterus is firm, at U, nontender. Vulva has intact repair. Mild lochia. Extremities without edema and nontender. Patient's blood type is O positive, she is rubella immune. She received Tdap in the 3rd trimester Discharge Plan Discharge Plan Patient Disposition: Home Discharge Med Rec/Prescriptions Prescriptions: New oxycodone-acetaminophen 5-325 mg Tablet 1 tab PO Q4HR PRN (Reason: Pain, Moderate (4-6)) Qty: 20 RF: 0 ibuprofen 600 mg Tablet 600 mg PO Q6HR PRN (Reason: Pain, Mild (1-3)) Qty: 30 RF: 0 docusate sodium 250 mg Capsule 250 mg PO DAILY Qty: 20 RF: 0 ferrous gluconate 324 mg (37.5 mg iron) tablet 324 mg PO DAILY Qty: 30 RF: 0 Continued prenat.vits,ulises,icb-fcsf-tmhpr tablet 1 tab PO DAILY RF: 0 Follow up/Referrals: Lynne Larios MD [Physician] - 6 Weeks Radha Jones MD [Primary Care Provider] - Provider Discharge Instructions Diet: Regular Activity: Nothing in vagina for 6 weeks Skin/Wound/Dressing Care Report to your healthcare provider any signs of infection, such as:: chills, fever and increased pain Discharge Data Primary Care Provider: Radha Jones
[2019-06-19] MEDS: PRENATAL VIT,CALC/IRON/FOLIC 1 TABLET 1 TAB PO (09:19)
[2019-06-19] MEDS: DOCUSATE 250 MG CAPSULE PO (09:19)
[2019-06-19 10:47] VITALS: BP 109/64; PULSE 73; RESP 18; TEMP 36.8
== END 2019-06-19 14:00 | disposition home or self-care (01) | DRG 806 ==
PROVIDERS: Admitting Provider Obstetrics & Gynecology; PCP Family Medicine; Visit Provider Obstetrics & Gynecology
DX: O26.813 Pregnancy related exhaustion and fatigue, third trimester (principal); D62 Acute posthemorrhagic anemia; Z37.0 Single live birth; Z3A.39 39 weeks gestation of pregnancy; O75.81 Maternal exhaustion complicating labor and delivery; O70.1 Second degree perineal laceration during delivery
CPT/HCPCS: 01967; 36415; 59050; 59400; 85014; 85018; 85025; 86850; 86900; 86901; G0379; J2210; J2405; J2590

== ENCOUNTER 2019-07-30 08:26 | Day surgery (SDC) | payer OTHER, SELFPAY ==
--- NOTE | 2019-07-30 | PATH_ITS ---
[facility] Accession Number: [id number] . 01 Material submitted: . placenta - RETAINED PLACENTA . 02 Diagnosis: Retained Placenta: Products of conception present. MRV 08/03/2019 1554 Local . 02 Electronically signed: . Emani Herrera MD, Pathologist NPI- [id number] . 01 Gross description: . Received in formalin, labeled retained placenta, are multiple fragments of puentes tissue mixed with apparent coagulated blood (6.0 x 6.0 x 1.5 cm in aggregate). No tissue is identified. Lead Sustainability Specialist tissue submitted in cassettes A1-A4. ([id number]) /MRV 07/31/2019 1601 Local . 02 Pathologist provided ICD-10: O73.1 . 02 CPT . 957243 Performed at: 01 [facility] [address] [id number] MD Balwinder Soto MD Phone: [phone] Performed at: 02 [facility] [address] [place], [place] [id number] MD Daylin Back MD Phone: [phone]
[2019-07-30 08:45] VITALS: BMI 25.2
[2019-07-30 08:50] VITALS: BP 109/66; PULSE 72; RESP 16; TEMP 36.4; O2SAT 98
[2019-07-30] MEDS: LACTATED RINGERS 1,000 ML 42 ML IV (08:50)
--- NOTE | 2019-07-30 09:26 | PM.HP.1 ---
History of Present Illness History of Present Illness Date Patient Seen: 07/30/19 Time Patient Seen: 09:26 Chief complaint: [id number] Narrative: Patient is a 34-year-old 2 para 1 5 weeks with retained placenta and continued bleeding She is here for a suction D&C. Patient History Family & Social History Social History: household members significant other,children Tobacco & Substance use: Smoking Status Never smoker alcohol intake current alcohol intake frequency 0-2 drinks per day Substance Use Type does not use Meds Home Medications and Allergies Home Medications Medication Instructions Recorded Confirmed Type prenat.vits,ulises,bdj-ohdy-kaamx 1 tab PO DAILY 11/05/18 07/30/19 History ibuprofen 600 mg PO Q6HR PRN #30 tab 06/19/19 07/30/19 Rx Allergies Allergy/AdvReac Type Severity Reaction Status Date / Time No Known Drug Allergies Allergy Verified 07/24/19 16:46 Exam Vital Signs (past 8 hours): - 07/30/19 08:50 Temperature 97.6 F Pulse Rate 72 Respiratory Rate 16 Blood Pressure 109/66 Pulse Oximetry 98 Oxygen Delivery Method Room Air Narrative Exam Narrative: HEENT: No thyromegaly, no anterior cervical or supraclavicular lymphadenopathy. Lungs:Clear to auscultation bilaterally, no wheezes. Cardiovascular: Regular rate and rhythm, no murmurs, rubs, or gallops. Abdomen: No scars. No hepatosplenomegaly. No masses palpable. External genitalia: Normal Vagina: Old blood Cervix: Parous Bimanual exam: 8 Week size uterus. Mobile. Rectal: No masses. Ultrasound: Heterogeneous echogenicity inside the uterus consistent with retained placenta Assessment & Plan Assessment & Plan narrative: Assessment: 34-year-old 2 para 1 with retained placenta at 5 weeks Plan: Suction D&C The risks, benefits, and alternatives to the procedure were explained to the patient. The risks including bleeding, infection, and uterine perforation. She understands these risks and agrees to proceed. A full par Q was held and consent form was signed.
--- NOTE | 2019-07-30 09:27 | SUR.OPER ---
Lithotomy on padded OR bed, head on pillow, arms secured on padded arm boards at <90 degrees abduction. Legs secured in padded yellow fins stirrups.
--- NOTE | 2019-07-30 09:28 | PM.PREOP ---
Pre-operative Note Interval Note History & Physical reviewed/Exam performed by Physician: Yes Changes to H&P: No
[2019-07-30] MEDS: SILVER NITRATE STICK 2 EACH TOP (09:53)
[2019-07-30 10:01] VITALS: BP 115/60; PULSE 66; RESP 14; TEMP 36.3; O2SAT 97
--- NOTE | 2019-07-30 10:02 | PM.GYNOP.1 ---
Operative Date/Time/Diagnoses Date of procedure: 07/30/19 Time of procedure: 10:02 Pre-op diagnosis: Retained placenta Post-op diagnosis: same Procedure & Clinicians Procedure: Procedures Operation Date: 07/30/19 09:45 Actual Procedures Side Surgeon p suction Dilation and Curettage Lynne Larios MD Indications: Retained placenta Continued bleeding since delivery Surgeon: Lynne Larios Anesthesia Type: General Operative Notes Findings: Small pieces in the posterior lower uterine segment Closure Type: not applicable Specimen(s): uterine contents Estimated blood loss (mL): 100 Blood products transfused: none Procedure in detail: After informed consent was obtained, the patient was taken to the operating room where she was placed in the dorsal supine position. After adequate anesthesia was obtained, she was placed in the dorsal lithotomy position, and prepped and draped in the usual sterile fashion. A time-out was performed. A bivalve speculum was placed into the vagina and the anterior lip of the cervix was grasped with a single-tooth tenaculum. The cervical os was sequentially dilated to the # 9 Hegar dilator. The # 9 plastic curved curette passed easily into the endometrial cavity. Several passes with suction revealed small pieces of placenta. The polyp forceps were used on the anterior and posterior quintana as well as at the fundus and there were some small pieces that were removed. Several more passes with suction revealed blood only. Sharp curettage was performed yielding blood only. The instruments were removed from the uterus. Single-tooth tenaculum was removed from the anterior lip of the cervix. The bivalve speculum was removed from the vagina. On the perineum there was a small area of granulation tissue from the obstetrical repair, and silver nitrate was applied x2 to the area. Sponge, lap, and instrument counts were correct x2. The patient tolerated the procedure well, and was taken to PACU in stable condition. Complications: none Post-operative Condition: stable Disposition: PACU Plan for aftercare: Home after recovery
[2019-07-30 10:06] VITALS: BP 105/39; PULSE 67; RESP 11; O2SAT 97
[2019-07-30 10:11] VITALS: BP 112/64; PULSE 62; RESP 14; O2SAT 98
[2019-07-30 10:17] VITALS: BP 106/50; PULSE 56; RESP 12; TEMP 36.3; O2SAT 97
--- NOTE | 2019-07-30 10:28 | SUR.PHASEII ---
tolerating juice, denies any pain, states she feels pressure and denies need for pain medication at this time.
[2019-07-30] MEDS: OXYCODONE/ACETAMINOPHEN 5/325 TABLET 1 TAB PO (10:36)
--- NOTE | 2019-07-30 10:39 | SUR.PHASEII ---
PT MEDICATED FOR C/O CRAMPING, TOLERATING JUICE, SMALL AMT OF DRAINAGE NOTED ON CAROL ANN PAD, AT BEDSIDE.
[2019-07-30 10:50] VITALS: BP 111/68; PULSE 57; RESP 16; TEMP 36.4; O2SAT 100
== END 2019-07-30 10:56 | disposition home or self-care (01) ==
PROVIDERS: PCP Family Medicine; Visit Provider Obstetrics & Gynecology
PROC: (CPT 58120; principal; 2019-07-30 09:45)
DX: O73.1 Retained portions of placenta and membranes, without hemorrhage (principal)
CPT/HCPCS: 59160; J1885; J2405; J2704; J3010

== ENCOUNTER → 2020-03-31 09:50 | Outpatient (CLI) | payer OTHER, SELFPAY ==
--- NOTE | 2020-03-31 09:51 | DI.US.S_ITS ---
PROCEDURE: US PELVIC COMPLETE INDICATIONS: PAIN TECHNIQUE: Real-time scanning was performed of the pelvic organs, with image documentation. Additional endovaginal scanning was necessary due to incomplete visualization of the adnexal and endometrial structures by transabdominal scanning. COMPARISON: [facility], , US PELVIC COMPLETE, 01/16/2018, 12:24. FINDINGS: Transabdominal scanning: Limited scanning through the kidneys shows no hydronephrosis. No pathologic free abdominal or pelvic fluid. Endovaginal scanning: Uterus: Uterus is normal in size at 7.8 x 3.3 x 4.8 cm. The endometrium measures 3.4 mm in combined thickness. Ovaries: The right ovary measures 2.7 x 1.7 x 2.9 cm. The left ovary measures 2.1 x 1.3 x 2.4 cm. The ovaries have a normal sonographic appearance. No adnexal masses are seen. IMPRESSION: Normal pelvic ultrasound. Dictated by: Som Beckham M.D. on 03/31/2020 at 14:19 Approved by: Som Beckham M.D. on 03/31/2020 at 14:21
== END ==
PROVIDERS: PCP Family Medicine; Referring Provider Obstetrics & Gynecology; Visit Provider Obstetrics & Gynecology
DX: R10.2 Pelvic and perineal pain (principal); Z87.42 Personal history of other diseases of the female genital tract
CPT/HCPCS: 76830; 76856

== ENCOUNTER → 2020-09-19 10:19 | Outpatient (CLI) | payer OTHER, SELFPAY ==
[2020-09-19 12:32] LABS: HCG Quantitative /Beta subunit 17913 mIU/mL
== END ==
PROVIDERS: PCP Family Medicine; Referring Provider Obstetrics & Gynecology; Visit Provider Obstetrics & Gynecology
DX: N91.2 Amenorrhea, unspecified (principal)
CPT/HCPCS: 36415; 84702

== ENCOUNTER → 2020-10-21 10:17 | Outpatient (CLI) | payer OTHER, SELFPAY ==
[2020-10-21 11:20] LABS: Appearance Urine UA CLEAR; Bilirubin Urine UA NEGATIVE (NEGATIVE); Glucose Urine UA NEGATIVE (Negative); Ketones Urine UA NEGATIVE (NEGATIVE); Leukocyte Esterase Urine UA 1+ (NEGATIVE); Nitrite Urine UA NEGATIVE (Negative); Occult Blood Urine UA NEGATIVE (Negative); Protein Urine UA NEGATIVE (Negative); Specific Gravity Urine UA <=1.005 (1.000-1.035); Urobilinogen Urine UA 0.2 E.U./dL (0.2)
[2020-10-21 11:34] LABS: Add Manual Diff / Slide Review NO; Basophils Absolute Auto 0 /uL (0-100); Basophils Percent Auto 0.6 % (0-2); Eosinophils Absolute Auto 0 /uL (0-450); Eosinophils Percent Auto 0.3 % (2-4); Hematocrit 39.3 % (36-46); Hemoglobin 13.5 g/dL (12.0-16.0); Lymphocytes Absolute Auto 2100 /uL (1100-4500); Lymphocytes Percent Auto 26.5 % (25-40); Mean Corpuscular HGB Conc 34.4 % (30-36); Mean Corpuscular Hemoglobin 32.3 PG (26-34); Monocytes Absolute Auto 500 /uL (0-900); Monocytes Percent Auto 7.1 % (3-14); Neutrophils Absolute Auto 5100 /uL (1500-7000); Neutrophils Percent Auto 65.5 % (50-75); Platelet Count 245 X10^3/uL (150-400); Red Blood Cell Count 4.18 X10^6/uL (4.0-5.2); White Blood Cell Count 7.8 X10^3/uL (4.5-11.0)
[2020-10-21 12:00] LABS: Bacteria Urine Moderate (10-30); Color Urine UA Straw; RBC Urine 0-1/HPF (0-5/HPF); Squamous Epithelial Cell Urine 1-5 /HPF (0-5/HPF); WBC Urine 5-10/HPF (0-5/HPF)
[2020-10-21 19:46] LABS: Hepatitis B Surface Antigen NEGATIVE s/c (NEGATIVE); Rubella Antibody IgG 39.7 IU/mL (>15)
[2020-10-21 19:59] LABS: HIV 1 & 2 Ab/Ag 4th Gen Combo NEGATIVE (NEGATIVE); Hep C Virus Ab w/Reflex Quant NEGATIVE s/c (NEGATIVE)
[2020-10-22 05:11] LABS: RPR Screen Non Reactive (Non Reactive)
[2020-10-22 09:41] LABS: Varicella IgG Antibody 571 index (Immune >165)
== END ==
PROVIDERS: Referring Provider Obstetrics & Gynecology; Visit Provider Obstetrics & Gynecology
DX: O09.521 Supervision of elderly multigravida, first trimester (principal); Z36.0 Encounter for antenatal screening for chromosomal anomalies
CPT/HCPCS: 80055; 81003; 81015; 81420; 86787; 86803; 86850; 86900; 86901; 87086; 87389

== ENCOUNTER → 2020-12-06 14:08 | Outpatient (CLI) | payer OTHER, SELFPAY ==
[2020-12-08 20:40] LABS: AFP Value 29.5 ng/mL (.); Gest Age on Col Date 20.9 weeks (.); Insulin Dep Diabetes No (.); OSBR Risk 1IN 10000 (.); Results Report (.); Test Results *Screen Negative* (.)
== END ==
PROVIDERS: Referring Provider Obstetrics & Gynecology; Visit Provider Obstetrics & Gynecology
DX: Z34.82 Encounter for supervision of other normal pregnancy, second trimester (principal); Z3A.16 16 weeks gestation of pregnancy
CPT/HCPCS: 36415; 82105

== ENCOUNTER → 2020-12-29 15:36 | Outpatient (CLI) | payer OTHER, SELFPAY ==
--- NOTE | 2020-12-29 15:38 | DI.US.S_ITS ---
PROCEDURE: US OB >= 14 WEEKS FETUS INDICATIONS: Anatomy Scan OUTSIDE/PRIOR DATING DATA: First dating scan (date and location): 09/21/2020 . Estimated date of delivery (TEMO) from first dating scan: 05/18/2021 . TECHNIQUE: Real-time scanning was performed of the fetus, with image documentation and biometric measurements. Endovaginal scanning: No COMPARISON: [facility], OB <= 14 WEEKS FETUS, 11/07/2020, 8:25. [facility], OB >= 14 WEEKS FETUS, 05/08/2019, 12:19. FINDINGS: General: A single living intrauterine gestation is present. Presentation: Breech. Placenta: Placental position is anterior , without previa. Amniotic fluid index: 16.3 cm, normal range is 5-24 cm. heart rate: 152 beats per minute. Maternal cervical canal: 4.9 cm long. Normal lower limit is 2.5 cm. biometrics: Biparietal diameter: 20 weeks 3 days Head circumference: 20 weeks Abdominal circumference: 20 weeks 3 days Femur length: 20 weeks 3 days Estimated gestational age from initial scan: 20 weeks Composite gestational age from present scan: 20 weeks 2 days Estimated weight and percentile: 351 g; 68th percentile Measurement variability for biometric dating: +/- 7 days from 14 weeks to 15 weeks 6 days gestation, +/- 10 days from 16 weeks to 21 weeks 6 days gestation, +/- 2 weeks from 22 weeks to 27 weeks 6 days gestation, +/- 3 weeks for 28 weeks gestation or later. weight reference: 4500 g or EFW >90/95% is considered macrosomia or large for gestational age. EFW <10% is small for gestational age. EFW 5% or less is considered intra-uterine growth restriction. Anatomic survey: Neuro: Ventricles are non-dilated at less than 10 mm. Cisterna magna is normal at 3-11 mm. Cerebellum is normal in size and morphology. Nuchal skin fold: Normal at less than 6 mm between 14-21 weeks gestational age. Face: Nose and lips, facial profile are normal. Spine: No evidence for spina bifida. Heart: 4-chambered heart is present, with normal ventricular outflow tracts. Diaphragm: Diaphragm is intact. Stomach: Left-sided stomach is present. Kidneys: No hydronephrosis. Normal is less than 5 mm in 2nd trimester, less than 7 mm in 3rd trimester. Cord: 3-vessel cord has orthotopic insertion. Bladder: Normal in size. Extremities: All 4 extremities identified. IMPRESSION: 1. Single living IUP redemonstrated and interval growth is normal. 2. anatomic survey. Dictated by: Yogesh VIZCARRA Interpreted: Sebastián Navarro MD on 12/29/2020 at 16:42 Transcribed by: TIFFANIE on 12/29/2020 at 16:44 Approved by: Sebastián Navarro M.D. on 12/29/2020 at 16:55
== END ==
PROVIDERS: Referring Provider Obstetrics & Gynecology; Visit Provider Obstetrics & Gynecology
DX: Z34.82 Encounter for supervision of other normal pregnancy, second trimester (principal); Z3A.20 20 weeks gestation of pregnancy
CPT/HCPCS: 76811

== ENCOUNTER → 2021-02-01 10:23 | Outpatient (CLI) | payer OTHER, SELFPAY ==
[2021-02-01 12:01] LABS: Hematocrit 35.8 % (36-46); Hemoglobin 12.1 g/dL (12.0-16.0)
[2021-02-01 12:10] LABS: GTT (PREG) 1 Hour PP 50gm Dose 124 mg/dL (76-139)
== END ==
PROVIDERS: Referring Provider Obstetrics & Gynecology; Visit Provider Obstetrics & Gynecology
DX: Z34.82 Encounter for supervision of other normal pregnancy, second trimester (principal); Z3A.26 26 weeks gestation of pregnancy
CPT/HCPCS: 36415; 82950; 85014; 85018

== ENCOUNTER 2021-02-17 15:30 | Outpatient (CLI) | payer OTHER, SELFPAY | END 2021-02-17 17:10 | disposition home or self-care (01) | LOC: LABOR 16:35 → OB 02-21 07:35 | PROVIDERS: Referring Provider Obstetrics & Gynecology; Visit Provider Obstetrics & Gynecology | DX: Z03.71 Encounter for suspected problem with amniotic cavity and membrane ruled out (principal); Z3A.27 27 weeks gestation of pregnancy | CPT/HCPCS: 59025; 84112; G0378; G0379 ==

== ENCOUNTER → 2021-03-01 16:41 | Outpatient (CLI) | payer OTHER, SELFPAY ==
[2021-03-01 21:27] LABS: Urine N gonorrhoeae NOT DETECTED
[2021-03-01 21:29] LABS: Urine Chlamydia NOT DETECTED
== END ==
PROVIDERS: PCP Family Medicine; Visit Provider Obstetrics & Gynecology
DX: Z34.82 Encounter for supervision of other normal pregnancy, second trimester (principal); Z3A.28 28 weeks gestation of pregnancy
CPT/HCPCS: 87491; 87591

== ENCOUNTER → 2021-04-20 13:33 | Outpatient (CLI) | payer OTHER, SELFPAY ==
[2021-04-21 11:57] LABS: Strep Grp B PCR NEG for Grp B Strep
== END ==
PROVIDERS: PCP Family Medicine; Visit Provider Obstetrics & Gynecology
DX: Z34.83 Encounter for supervision of other normal pregnancy, third trimester (principal); Z3A.36 36 weeks gestation of pregnancy
CPT/HCPCS: 87653

== ENCOUNTER 2021-05-18 06:58 | Inpatient (IN) | payer OTHER, SELFPAY ==
--- NOTE | 2021-05-18 | PATH_ITS ---
[facility] Accession Number: [id number] . 01 Material submitted: . placenta - RETAINED PLACENTA . 02 Diagnosis: Retained Placenta: Products of conception identified, consistent with retained products of conception. MRV 05/22/2021 1303 Local . 02 Electronically signed: . Emani Herrera MD, Pathologist NPI- [id number] . 01 Gross description: . The specimen is received in formalin, labeled retained placenta and consists of multiple pink-red placental tissue fragments and clotted blood weighing 16 grams and measuring 5.0 x 5.0 x 3.5 cm in aggregate. No parts are identified. Sectioning reveals pink-red cut surface with no masses or lesions identified. Rod Filler sections are submitted in cassettes A1-A3. ([id number]) /MRV 05/19/2021 1040 Local . 02 Pathologist provided ICD-10: O73.1 . 02 CPT . 218998 Performed at: 01 [facility] [address], [place], [place] [id number] MD Balwinder Soto MD Phone: [phone] Performed at: 02 [facility] [address] [place], [place] [id number] MD Daylin Back MD Phone: [phone]
[2021-05-18] MEDS: LACTATED RINGERS 1,000 ML 100 ML IV ×4 (08:10→18:43)
[2021-05-18] MEDS: OXYTOCIN PREMIX 30 UNIT/500 ML PLAST..BAG IV (08:21)
[2021-05-18 08:27] LABS: Add Manual Diff / Slide Review NO; Basophils Absolute Auto 100 /uL (0-100); Basophils Percent Auto 0.9 % (0-2); Eosinophils Absolute Auto 0 /uL (0-450); Eosinophils Percent Auto 0.4 % (2-4); Hematocrit 39.2 % (36-46); Hemoglobin 13.2 g/dL (12.0-16.0); Lymphocytes Absolute Auto 1600 /uL (1100-4500); Lymphocytes Percent Auto 14.2 % (25-40); Mean Corpuscular HGB Conc 33.8 % (30-36); Mean Corpuscular Hemoglobin 29.9 PG (26-34); Mean Corpuscular Volume 88.4 fL (80-100); Monocytes Absolute Auto 600 /uL (0-900); Monocytes Percent Auto 5.5 % (3-14); Neutrophils Absolute Auto 8700 /uL (1500-7000); Platelet Count 167 X10^3/uL (150-400); Red Blood Cell Count 4.43 X10^6/uL (4.0-5.2); Red Cell Distribution Width 13.1 % (11.6-14.8)
[2021-05-18 08:58] LABS: COVID19 -Nasal RAPID Negative (Negative)
[2021-05-18 09:07] VITALS: BP 118/78
--- NOTE | 2021-05-18 10:51 | PM.OBPNLAB ---
Date/Time Date Patient Seen: 05/18/21 Time Patient Seen: 10:51 Pain Control Pain control: tolerating well Pelvic Exam Dilation (cm): 4 Effacement (%): 85 station: 0 Amniotic membrane status: Bulging Contractions Contractions on admission: none Pitocin rate (mU/min): 7 Contraction frequency (min): 3 Contraction duration (min): 1 Contraction pattern: Regular Contraction intensity: Moderate Status status: Category l Heart Rate Baseline: 145 Monitor Accelerations: Present Monitor Decelerations: Variable Monitor Variability: Moderate Assessment and Plan Assessment: induction ongoing Plan: continuous present management Comments: Artificial rupture membranes with clear amniotic fluid
[2021-05-18] MEDS: METHYLERGONOVINE 0.2 MG/ML VIAL IM (16:00)
--- NOTE | 2021-05-18 16:05 | PM.OBPRVD ---
Events: Labor Induction Labor & Delivery Delivery date: 05/18/21 Intrapartal Events: None Cervical ripening method: none Induction method: per pitocin protocol Delivery augmentation: rupture of membranes Delivery monitor: external FHT and external uterine Route of delivery: Episiotomy description: None L&D Laceration Description: Perineal - 1st Degree Delivery repair: chromic Estimated blood loss (mL): 200 Anesthesia Type: Epidural Complications: None Narrative: 10 minutes. New patient complete and pushed for 10 minutes. 4:47 p.m., a live female delivered spontaneously over an intact perineum in the EMILIANO presentation. Double nuchal cord reduced on the perineum. The remainder of the body delivered without difficulty and was placed on mom's abdomen. After the cord stopped pulsing, the cord was double clamped and cut. Cord bloods were obtained. Pitocin was given in the IV fluids. The placenta delivered intact with a three-vessel cord at 4:55 p.m.. There was brisk bleeding just before the placenta delivered. After the placenta delivered fundal massage was performed with passage of large clots. A first-degree perineal tear was repaired in the usual fashion with 2 0 chromic. Hemostasis was achieved. Estimated blood loss 200 cc. Apgars 8 at 1 minute and 9 at 5 minutes. Epidural analgesia. . Mom and stable to recovery. Lap and 4 x 4 count correct. One curved and 1 straight needle. Baby 1: Infant gender: Female Presentation: vertex Position: Right Occiput Anterior Placenta delivery description: Spontaneous Cord Vessel Description: 3 Vessels, Nuchal Cord (x2), Loose, Reduced and Clamped/Cut score (1 min): 8 score (5 min): 9 weight: 8 lb 1 oz Plan for aftercare: Routine care
[2021-05-18] MEDS: ONDANSETRON 4 MG/2 ML INJ IV (18:00)
[2021-05-18] MEDS: CEFAZOLIN 1 GM VIAL 2 GM IV (18:31)
--- NOTE | 2021-05-18 18:56 | SUR.OPER ---
Lithotomy on padded OR bed, head on pillow, arms secured on padded arm boards at <90 degrees abduction. Legs secured in padded yellow fins stirrups.
[2021-05-18 18:57] LABS: Hematocrit 29.8 % (36-46); Hemoglobin 9.9 g/dL (12.0-16.0)
--- NOTE | 2021-05-18 19:05 | PM.EVENT ---
Event Note Date Patient Seen: 05/18/21 Time Patient Seen: 17:45 Event Note: Called to see patient for excessive vaginal bleeding. Patient feeling nauseous. Blood pressure as low as 90s over 50s. Brisk blood coming from the vagina. Large 450 cc clot had just been passed. Assessment: hemorrhage Plan: To operating room for suction D&C and Bakri balloon placement
--- NOTE | 2021-05-18 19:06 | P.OP_ITS ---
Operative Date/Time/Diagnoses Date of procedure: 05/18/21 Time of procedure: 19:06 Pre-op diagnosis: hemorrhage Post-op diagnosis: other (Retained placenta) Procedure & Clinicians Procedure: Procedures Operation Date: 05/18/21 18:15 Actual Procedure Side Surgeon p Dilation and Curettage Lynne Larios MD Indications: hemorrhage Surgeon: Lynne Larios Anesthesia Type: Epidural Operative Notes Findings: Fundus at U -2 Brisk vaginal bleeding With suction D&C large piece of placenta removed Closure Type: not applicable Specimen(s): other (retained piece of placenta) Applied: catheter and other (Bakri balloon) Estimated blood loss (mL): 700 Blood products transfused: none Procedure in detail: After informed consent was obtained, the patient was taken to the operating room where she was placed in the dorsal supine position. Her epidural was bolused. She was placed in the dorsal lithotomy position, and prepped and draped in the usual sterile fashion. During the prep there were lar ge clots coming from the vagina. A Wagner catheter was in place. A bivalve speculum was placed into the vagina. The anterior and posterior lips of the cervix were grasped with ring forceps. Using the # 12 suction catheter which was guided into the uterus, several passes with suction revealed a large piece of placenta. The Bakri balloon was placed in a ring forcep and passed into the uterus. The balloon was filled with 180 cc of sterile saline. The balloon was hooked to a grenade drain. The patient's bleeding was down to minimal. Estimated blood loss: 700 cc. Sponge, lap, and instrument counts were correct x2. The patient tolerated the procedure well, and was taken to PACU in stable condition. Complications: none Post-operative Condition: stable Disposition: PACU Plan for aftercare: To the Center after Recovery
[2021-05-18 19:13] VITALS: BP 107/56; PULSE 101; RESP 16; TEMP 36.2; O2SAT 100
[2021-05-18 19:22] VITALS: BP 112/61; PULSE 102; RESP 16; O2SAT 100
[2021-05-18 19:23] VITALS: BP 112/59; PULSE 105; RESP 14; O2SAT 100
--- NOTE | 2021-05-18 19:25 | SUR.PHASEI ---
patient to pacu. wide awake. conversing appropriately with staff. balloon drain noted from vagina. no active bleeding noted with fundal massage. denies pain or nausea. able to lift legs off bed. vss.
[2021-05-18 19:27] VITALS: BP 110/59; PULSE 98; RESP 15; O2SAT 99
[2021-05-18] MEDS: IBUPROFEN 600 MG TABLET PO (20:35)
[2021-05-18] MEDS: ACETAMINOPHEN 325 MG TABLET 650 MG PO (20:36)
[2021-05-18] MEDS: LANOLIN OINT 7 GM 1 APPLIC TOP (20:36)
[2021-05-18] MEDS: DERMOPLAST SPRAY 20% 60 ML 1 SPRAY TOP (20:37)
[2021-05-18] MEDS: METHYLERGONOVINE 0.2 MG TABLET PO (22:00)
[2021-05-19] MEDS: LACTATED RINGERS 1,000 ML 100 ML IV (00:08)
[2021-05-19] MEDS: METHYLERGONOVINE 0.2 MG TABLET PO ×3 (04:00→17:36)
[2021-05-19] MEDS: IBUPROFEN 600 MG TABLET PO ×4 (04:53→23:40)
[2021-05-19] MEDS: ACETAMINOPHEN 325 MG TABLET 650 MG PO ×3 (04:53→23:41)
[2021-05-19] MEDS: OXYCODONE IR 5 MG TABLET PO ×3 (08:05→17:35)
[2021-05-19] MEDS: DOCUSATE 100 MG CAPSULE PO ×2 (08:05→21:22)
[2021-05-19] MEDS: PRENATAL VIT,CALC/IRON/FOLIC 1 TABLET 1 TAB PO (08:05)
--- NOTE | 2021-05-19 14:37 | PM.OBPN.1 ---
Subjective - OB Subjective Patient comments: other (Complains of bad cramping) [place] baby status: doing well and nursing well feeding status: exclusively breast feeding Date Patient Seen: 05/19/21 Time Patient Seen: 14:38 Interval history: Patient is a 36-year-old 3 para 2 status post a spontaneous vaginal delivery last evening followed by a hemorrhage requiring a D and C and Bakri balloon placement. She was found to have a retained piece of placenta. Her bleeding has been minimal overnight. She has not been out of bed so is not sure if she feels dizzy or lightheaded. Exam Vital Signs (past 8 hours): Oxygen Delivery Method Room Air Narrative Exam Narrative: Generally: Patient is sitting up in bed, nursing infant, no acute distress Fundus: Firm at U -2 Extremities: Trace edema Drain: Approximately 100 cc of serosanguineous fluid since Bakri balloon placed Objective Labs Result Diagrams: 05/19/21 06:47 Labs: Laboratory Results - last 24 hr 05/18/21 05/18/21 05/19/21 08:00 18:49 06:47 Hgb 9.9 L 7.0 L Hct 29.8 L 21.0 L Blood Type O Positive Antibody Screen Negative Crossmatch See Detail Assessment & Plan Plan day: 1 Comments: Begin removing 30 cc an hour from the Bakri balloon until empty (180cc total) After Bakri balloon out, may remove Wagner catheter Will ambulate after both removed and see if she is symptomatic Iron infusion Time Spent With Patient Time: Total time spent is greater than 50% in coordination of care (as documented) at patient's floor/unit and/or counseling patient: Time with patient: 15-24 minutes
[2021-05-19] MEDS: IRON SUCROSE 300 MG in SODIUM CHLORIDE 0.9% 100 ML 76.667 ML IV (16:11)
[2021-05-19 17:34] VITALS: TEMP 36.9
[2021-05-19 17:35] VITALS: TEMP 36.9
[2021-05-19 17:36] VITALS: TEMP 36.9
[2021-05-19] MEDS: OXYCODONE IR 10 MG TABLET PO (21:21)
[2021-05-20] MEDS: OXYCODONE IR 5 MG TABLET PO ×2 (01:23→08:58)
[2021-05-20] MEDS: IBUPROFEN 600 MG TABLET PO ×2 (05:28→12:47)
[2021-05-20] MEDS: ACETAMINOPHEN 325 MG TABLET 650 MG PO (05:29)
[2021-05-20] MEDS: DOCUSATE 100 MG CAPSULE PO (08:58)
[2021-05-20] MEDS: PRENATAL VIT,CALC/IRON/FOLIC 1 TABLET 1 TAB PO (08:58)
[2021-05-20 10:11] LABS: Hematocrit 19.7 % (36-46); Hemoglobin 6.5 g/dL (12.0-16.0)
[2021-05-20 11:56] VITALS: BP 110/59; PULSE 98; RESP 15; TEMP 36.9
[2021-05-20] MEDS: OXYCODONE IR 10 MG TABLET PO (12:48)
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
--- NOTE | 2021-05-28 12:54 | P.DS_ITS ---
Discharge Providers Provider Date of admission: 05/18/21 06:58 Discharge Date: 05/20/21 Primary care physician: Patrick Montiel DO Consults: 05/19/21 16:09 Consult to Preschool Special Education Teacher Routine Comment: Discharge provider: Lynne Larios MD Summary Hospital Course Date Patient Seen: 05/20/21 Time Patient Seen: 11:30 Diagnoses: Forty weeks gestation Induction of labor Spontaneous vaginal delivery hemorrhage Suction D and C and Bakri balloon placement First-degree perineal laceration and repair Retained piece of placenta Hospital Course: Patient is a 36-year-old 3 para 2 who presented on May 18, 2021 for scheduled induction of labor with Pitocin. She was started on Pitocin. Artificial rupture membranes was performed mid morning. She received an epidural for pain management. She progressed to complete dilation and had a spontaneous vaginal delivery with a first-degree perineal laceration which was repaired. She had a delayed hemorrhage that required a trip to the operating room for D and C and Bakri balloon placement. Her hematocrit dropped to 20 in remained stable. She was not significantly symptomatic so no transfusion was performed. She was discharged home on May 20, 2021. Peripartum Data Infant Delivery Method: Natural Vaginal Laceration Description: Perineal - 1st Degree Episiotomy description: None Procedures: Pitocin induction of labor Artificial rupture membranes Epidural analgesia Spontaneous vaginal delivery First-degree perineal laceration repair D and C and Bakri balloon placement in operating room complications: retained placenta 1: Gender: Female Disposition of : home Status at Discharge Cognitive/behavioral status at discharge: oriented Functional status at discharge: independent ambulation Overall status at discharge: patient is progressing back to baseline Time Spent with Patient Time attestation: Total time spent providing and/or coordinating discharge services: Time spent: Less than 30 minutes Objective Labs Result Diagrams: 05/20/21 10:06 Exam Vital Signs (past 8 hours): Oxygen Delivery Method Room Air Narrative Exam Narrative: Generally: Patient is sitting up in bed, holding , no acute distress Lungs: Clear to auscultation bilateral Cardiovascular: Mild tachycardia. Fundus: Firm at U -1 Extremities: Negative Homans, no edema Discharge Plan Discharge Plan Patient Disposition: Home Provider Discharge Comment: Call with fever, chills, or bleeding vaginally soaking a pad in an hour Ibuprofen 600 mg every 6 hours as needed Tylenol 650 mg every 6 hours as needed Discharge orders & Medications Prescriptions: New oxycodone 5 mg tablet 5 mg PO Q4H PRN (Reason: pain) Qty: 10 RF: 0 Continued prenat.vits,ulises,lxe-lbfw-axqhr tablet 1 tab PO DAILY RF: 0 hydrocortisone [Anusol-HC] 2.5 % cream with perineal applicator 1 applic [place] QD-BID PRN (Reason: hemorrhoids) Qty: 30 RF: 2 Follow up/Referrals: Lynne Larios MD [Physician] - 6 Weeks ('s office will call with an appointment on Saturday for 6 weeks) Diet/Activity/Treatments Diet: Regular Activity: Nothing in the vagina for 6 weeks Visit Report/Discharge Packet Instructions: DI for Hemorrhage, DI for Labor and Delivery, Vaginal , DI for Prescription Opioid Use Stand Alone Forms: Discharge: Care, Surgery Discharge Discharge Data Primary Care Provider: Patrick Montiel
== END 2021-05-20 13:38 | disposition home or self-care (01) | DRG 768 ==
PROVIDERS: Admitting Provider Obstetrics & Gynecology; PCP Family Medicine; Referring Provider Obstetrics & Gynecology; Visit Provider Obstetrics & Gynecology
PROC: 0HQ9XZZ Repair Perineum Skin, External Approach (ICD-10-PCS; CPT 58120; principal; 2021-05-18 18:15)
DX: O69.81X0 Labor and delivery complicated by cord around neck, without compression, not applicable or unspecified (principal); Z37.0 Single live birth; O72.2 Delayed and secondary postpartum hemorrhage; O70.0 First degree perineal laceration during delivery; Z3A.40 40 weeks gestation of pregnancy
CPT/HCPCS: 01967; 36415; 59050; 59160; 59400; 59899; 85014; 85018; 85025; 86850; 86900; 86901; 87635; C9803; G0379; J0690; J1756; J2210; J2250; J2405; J2590; J2704; J3010

== ENCOUNTER → 2021-05-22 14:13 | Outpatient (CLI) | payer OTHER, SELFPAY ==
[2021-05-22 14:57] LABS: Add Manual Diff / Slide Review NO; Basophils Absolute Auto 0 /uL (0-100); Basophils Percent Auto 0.4 % (0-2); Eosinophils Absolute Auto 300 /uL (0-450); Eosinophils Percent Auto 2.7 % (2-4); Lymphocytes Absolute Auto 2000 /uL (1100-4500); Lymphocytes Percent Auto 21.1 % (25-40); Mean Corpuscular HGB Conc 33.6 % (30-36); Mean Corpuscular Hemoglobin 30.5 PG (26-34); Monocytes Absolute Auto 600 /uL (0-900); Monocytes Percent Auto 6.3 % (3-14); Neutrophils Absolute Auto 6400 /uL (1500-7000); Neutrophils Percent Auto 69.5 % (50-75); Platelet Count 262 X10^3/uL (150-400); Red Cell Distribution Width 13.9 % (11.6-14.8); White Blood Cell Count 9.3 X10^3/uL (4.5-11.0)
[2021-05-22 15:00] LABS: Hemoglobin 6.7 g/dL (12.0-16.0)
== END ==
PROVIDERS: PCP Family Medicine; Referring Provider Obstetrics & Gynecology; Visit Provider Obstetrics & Gynecology
DX: D64.9 Anemia, unspecified (principal)
CPT/HCPCS: 36415; 85025

== ENCOUNTER 2021-12-28 17:24 | Emergency (ER) | payer BC, SELFPAY ==
[2021-12-28] VITALS (8 sets, daily range): BP systolic 112–120; BP diastolic 56–72; PULSE 67–79; RESP 13–22; TEMP 35.9; O2SAT 98–100; BMI 25.0
--- NOTE | 2021-12-28 18:00 | DI.RAD.S_ITS ---
PROCEDURE: XR CHEST 1V INDICATIONS: CHEST PAIN TECHNIQUE: One view of the chest was acquired. COMPARISON: None. FINDINGS: Surgical changes and devices: None. Lungs and pleura: Lungs are clear. No pleural effusions or pneumothorax. Mediastinum: Mediastinal contours appear normal. Heart size is normal. Bones and chest wall: No suspicious bony lesions. Overlying soft tissues appear unremarkable. IMPRESSION: No acute pulmonary process. Dictated by: Wilda Alcala M.D. on 12/28/2021 at 18:44 Approved by: Wilda Alcala M.D. on 12/28/2021 at 18:45
[2021-12-28 18:23] LABS: Add Manual Diff / Slide Review NO; Basophils Absolute Auto 0 /uL (0-100); Basophils Percent Auto 0.4 % (0-2); Eosinophils Absolute Auto 0 /uL (0-450); Eosinophils Percent Auto 0.3 % (2-4); Hematocrit 44.5 % (36-46); Hemoglobin 15.5 g/dL (12.0-16.0); Lymphocytes Absolute Auto 1700 /uL (1100-4500); Lymphocytes Percent Auto 20.4 % (25-40); Mean Corpuscular HGB Conc 34.8 % (30-36); Mean Corpuscular Volume 86.2 fL (80-100); Monocytes Absolute Auto 500 /uL (0-900); Monocytes Percent Auto 5.5 % (3-14); Neutrophils Absolute Auto 6300 /uL (1500-7000); Neutrophils Percent Auto 73.4 % (50-75); Platelet Count 229 X10^3/uL (150-400); Red Blood Cell Count 5.16 X10^6/uL (4.0-5.2); Red Cell Distribution Width 12.5 % (11.6-14.8); White Blood Cell Count 8.5 X10^3/uL (4.5-11.0)
[2021-12-28 18:28] LABS: Prothrombin Time 11.2 SECONDS (10.1-12.7)
[2021-12-28 18:31] LABS: PTT Partial Thromboplastin Tim 35 SECONDS (26.4-36.2)
[2021-12-28 18:34] LABS: Alanine Aminotransferase 14 IU/L (<35); Albumin 5.2 g/dL (3.5-5.0); Albumin Globulin Ratio 1.4 (1.0-2.8); Alkaline Phosphatase 93 U/L (38-126); Aspartate Aminotransferase 25 IU/L (14-36); BUN Creatinine Ratio 22.6 (6-22); Bilirubin Total 0.5 mg/dL (0.2-1.3); Blood Urea Nitrogen 14 mg/dL (7-17); Calcium 9.4 mg/dL (8.4-10.2); Carbon Dioxide 24 mmol/L (22-32); Chloride 104 mmol/L (98-107); Creatine Kinase 56 U/L (30-135); Estimated Glomerular Filt Rate > 60 mL/min (>60); Globulin 3.7 g/dL (1.7-4.1); Glucose 103 mg/dL (70-100); HEMOLYSIS < 15 (0-50); Lipase 160 U/L (23-300); Magnesium 1.9 mg/dL (1.6-2.3); Potassium 3.7 mmol/L (3.4-5.1); Sodium 141 mmol/L (137-145); Total Protein 8.9 g/dL (6.3-8.2)
[2021-12-28 18:41] LABS: D Dimer 230 ng/mL (<230)
[2021-12-28 18:45] LABS: Troponin I < 0.012 ng/mL (0.01-0.034)
[2021-12-28 21:28] LABS: Troponin I < 0.012 ng/mL (0.01-0.034)
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
== END 2021-12-28 22:52 | disposition home or self-care (01) ==
PROVIDERS: Emergency Medicine; Emergency Provider Emergency Medicine; PCP Family Medicine
DX: R07.9 Chest pain, unspecified (principal); R06.02 Shortness of breath; R11.0 Nausea
CPT/HCPCS: 36415; 71045; 80053; 82550; 83690; 83735; 84484; 85025; 85379; 85610; 85730; 93005; 99283

== ENCOUNTER → 2022-07-11 13:11 | Outpatient (CLI) | payer BC, SELFPAY ==
--- NOTE | 2022-07-11 13:14 | DI.US.S_ITS ---
LIMITED ULTRASOUND OF LEFT BREAST AND AXILLA: 07/11/2022 CLINICAL: Focal left breast and left axilla pain. Comparison is made to exam dated: 07/11/2022 mammogram - [facility]. Color flow ultrasound of the left breast axilla was performed on the areas of interest. [place] scale images of the real-time examination were reviewed. IMPRESSION: NEGATIVE There is no sonographic evidence of malignancy. There is no sonographic abnormality seen in the left breast or in the left axilla to correspond with the pain in the left axilla. Please note, the patient has declined mammogram examination. If further characterization of the left breast implant is warranted, implant protocol MRI could be used. This exam was interpreted at Station ID: [id number]. Electronically Signed By: Modesta Prado M.D. lk/:07/16/2022 14:48:44 letter sent: Clinical Evaluation Ultrasound BI-RADS: 1 Negative
== END ==
PROVIDERS: PCP Family Medicine; Referring Provider Obstetrics & Gynecology; Visit Provider Obstetrics & Gynecology
DX: N64.4 Mastodynia (principal); Z98.82 Breast implant status
CPT/HCPCS: 76642

== ENCOUNTER → 2022-08-02 12:20 | Outpatient (CLI) | payer OTHER, BC, SELFPAY ==
--- NOTE | 2022-08-02 | DI.MRI.S_ITS ---
BREAST MRI OF BOTH BREASTS: 08/02/2022 CLINICAL: Pain behind Left implant. Comparison is made to exam dated: 07/11/2022 [facility]. INDICATIONS: PAIN BEHIND LEFT IMPLANT TECHNIQUE: The patient was placed prone in a dedicated breast imaging coil. Noncontrast axial T1 spin echo, STIR, and silicone-selective inversion recovery; coronal T2 fast spin echo; and sagittal T2 fast spin echo with fat saturation and silicone-selective inversion recovery sequences were obtained through both breasts. Please note that intravenous contrast material was not administered due to request of the ordering physician. FINDINGS: Image quality: Excellent. There are scattered fibroglandular elements in both breasts. Right breast: Retropectoral silicone implant is present. A radial fold is noted medially. No intracapsular or extracapsular rupture is seen. No extravasation of silicone into the breast. No obvious breast mass is seen on this noncontrast exam. There is no significant internal mammary or axillary lymphadenopathy. Left breast: Retropectoral silicone implant is present. A radial fold is noted medially. No intracapsular or extracapsular rupture is seen. No extravasation of silicone into the breast. No obvious breast mass is seen on this noncontrast exam. There is no significant internal mammary or axillary lymphadenopathy. Miscellaneous: The included portions of the anterior chest wall and upper abdomen demonstrate no acute abnormality. No focal chest wall edema. A circumscribed [id number] lesion in the right hepatic lobe is most likely a benign cyst or hemangioma. IMPRESSION: NEGATIVE Bilateral silicone breast implants are present and intact. No extravasation of silicone is seen. No significant abnormality is seen to account for the reported left-sided pain. Recommend clinical follow-up. BIRADS 1: Negative. Recommend annual screening mammograms beginning at 40 years old. This exam was interpreted at Station ID: [id number]. Electronically Signed By: Sebastián Navarro M.D. ar/:08/02/2022 15:54:57 letter sent: Clinical Evaluation ACR BI-RADS Category 1: Negative [id number]
== END ==
PROVIDERS: PCP Physician Assistant; Referring Provider Physician Assistant; Visit Provider Physician Assistant
DX: N64.4 Mastodynia (principal); Z98.82 Breast implant status
CPT/HCPCS: 77049

== ENCOUNTER → 2023-07-31 12:24 | Outpatient (CLI) | payer OTHER, BC, SELFPAY ==
[2023-07-31 13:19] LABS: Hemoglobin A1C% w Est Avg Glu 4.7 % (4.0-6.0)
[2023-07-31 14:08] LABS: Thyroid Stimulating Hormone 1.25 uIU/mL (0.47-4.68)
[2023-08-06 19:22] LABS: Anti Mullerian Hormone 1.14 ng/mL (.)
== END ==
PROVIDERS: PCP Physician Assistant; Referring Provider Student in an Organized Health Care Education/Training Program; Visit Provider Student in an Organized Health Care Education/Training Program
DX: N97.0 Female infertility associated with anovulation (principal)
CPT/HCPCS: 36415; 82397; 83036; 84146; 84443

== ENCOUNTER → 2024-05-06 11:32 | Outpatient (CLI) | payer OTHER, BC, SELFPAY ==
[2024-05-06 16:38] LABS: Urine N gonorrhoeae NOT DETECTED
[2024-05-06 16:39] LABS: Urine Chlamydia NOT DETECTED
== END ==
PROVIDERS: PCP Physician Assistant; Referring Provider Obstetrics & Gynecology; Visit Provider Obstetrics & Gynecology
DX: Z34.81 Encounter for supervision of other normal pregnancy, first trimester (principal); Z3A.09 9 weeks gestation of pregnancy
CPT/HCPCS: 87491; 87591

== ENCOUNTER → 2024-05-15 08:43 | Outpatient (CLI) | payer OTHER, BC, SELFPAY ==
[2024-05-15 09:47] LABS: Natera Collection Specimen Collected
[2024-05-15 09:59] LABS: Add Manual Diff / Slide Review NO; Basophils Absolute Auto 0 /uL (0-100); Basophils Percent Auto 0.4 % (0-2); Eosinophils Absolute Auto 0 /uL (0-450); Eosinophils Percent Auto 0.3 % (2-4); Hematocrit 38.9 % (36-46); Hemoglobin 13.2 g/dL (12.0-16.0); Lymphocytes Absolute Auto 1600 /uL (1100-4500); Lymphocytes Percent Auto 19.9 % (25-40); Mean Corpuscular HGB Conc 33.9 % (30-36); Mean Corpuscular Hemoglobin 30.4 PG (26-34); Mean Corpuscular Volume 89.7 fL (80-100); Monocytes Absolute Auto 500 /uL (0-900); Monocytes Percent Auto 5.7 % (3-14); Neutrophils Absolute Auto 6000 /uL (1500-7000); Neutrophils Percent Auto 73.7 % (50-75); Platelet Count 243 X10^3/uL (150-400); Red Blood Cell Count 4.34 X10^6/uL (4.0-5.2); Red Cell Distribution Width 12.6 % (11.6-14.8); White Blood Cell Count 8.1 X10^3/uL (4.5-11.0)
[2024-05-15 10:05] LABS: Hemoglobin A1C% w Est Avg Glu 4.7 % (4.0-6.0)
[2024-05-15 10:40] LABS: Hepatitis B Surface Antigen NEGATIVE s/c (NEGATIVE); Rubella Antibody IgG 44.1 IU/mL (>15)
[2024-05-15 10:57] LABS: HIV 1 & 2 Ab/Ag 4th Gen Combo NEGATIVE (NEGATIVE); Hep C Virus Ab w/Reflex Quant NEGATIVE s/c (NEGATIVE)
[2024-05-16 04:09] LABS: RPR Screen Non Reactive (Non Reactive)
[2024-05-16 08:36] LABS: Varicella IgG Antibody Reactive (Non Reactive)
== END ==
PROVIDERS: PCP Physician Assistant; Referring Provider Obstetrics & Gynecology; Visit Provider Obstetrics & Gynecology
DX: Z34.81 Encounter for supervision of other normal pregnancy, first trimester (principal); Z87.42 Personal history of other diseases of the female genital tract; Z3A.10 10 weeks gestation of pregnancy
CPT/HCPCS: 36415; 80055; 83036; 86787; 86803; 86850; 86900; 86901; 87086; 87389

== ENCOUNTER → 2024-07-01 10:29 | Outpatient (CLI) | payer OTHER, BC, SELFPAY ==
[2024-07-03 20:36] LABS: AFP Value 29.1 ng/mL (.); Gest Age on Col Date 16.9 weeks (.); Insulin Dep Diabetes No (.); OSBR Risk 1IN 10000 (.); Results Report (.); Test Results *Screen Negative* (.)
== END ==
PROVIDERS: PCP Physician Assistant; Referring Provider Obstetrics & Gynecology; Visit Provider Obstetrics & Gynecology
DX: Z36.0 Encounter for antenatal screening for chromosomal anomalies (principal)
CPT/HCPCS: 36415; 82105

== ENCOUNTER → 2024-10-29 11:52 | Outpatient (CLI) | payer OTHER, BC, SELFPAY ==
--- NOTE | 2024-10-29 11:54 | DI.US.S_ITS ---
MM diagnostic mammo implant BI, US breast LT limited: 10/29/2024 BI-RADS: 2 CLINICAL: 39-year old female for bilateral diagnostic mammogram and left diagnostic breast ultrasound. Tyrer-Cuzick lifetime risk of 12.2%. No personal or first-degree family history of breast cancer. History of ovarian cancer in one first-degree relative. The patient reports pain (2 years) in the left breast. The patient has bilateral implants. PRIOR EXAMS 08/02/2022, 07/11/2022. MAMMOGRAPHY TECHNIQUE: 2D and 3D (tomosynthesis) digital mammographic views obtained, with additional images as needed for full coverage. Current study was also evaluated with a Computer Aided Detection (CAD) system. ULTRASOUND TECHNIQUE TARGETED Left Breast Ultrasound: Real-time ultrasound exam was performed focused to area of clinical and/or imaging concern. DENSITY C. The breasts are heterogeneously dense, which may obscure small masses. IMPLANTS There are bilateral retro pectoral silicone implants. MAMMOGRAPHY FINDINGS Right: There are no suspicious masses, calcifications, or other findings in the breast. Left (finding-1): Outer Hemisphere: There is no suspicious mammographic finding to account for concern by the patient of pain/tenderness. No suspicious mass, asymmetry, microcalcification, or other abnormality seen. ULTRASOUND FINDINGS Left (finding-1): Outer Hemisphere: Targeted ultrasound to the patient's reported areas of pain was performed at 12-2 o'clock, 15 cm from the nipple, and at 4-5 o'clock, 15 cm from the nipple. No suspicious sonographic finding with typically benign findings noted. IMPRESSION: * No evidence of malignancy with benign findings. RECOMMENDATIONS Left: Outer Hemisphere * Non-focal symptoms, such as pain are typically benign. Clinical follow-up is recommended, and further management of these symptoms should be based on the results of clinical evaluation. If diffuse symptoms persist or become more focal in nature, further clinical evaluation should be considered. Bilateral * Annual screening mammography in one year. OVERALL ASSESSMENT CATEGORY BI-RADS-2: Benign. The [employer] recommends annual screening mammography beginning at age 40 for women with average risk of breast cancer. ELECTRONICALLY SIGNED: Sola Erazo M.D. on 10/29/2024 at 02:53:49 PM PT Interpreting Station ID: [id number]
== END ==
LOC: MAMMO 11:53
PROVIDERS: PCP Physician Assistant; Referring Provider Physician Assistant; Visit Provider Physician Assistant
DX: N64.4 Mastodynia (principal); Z98.82 Breast implant status
CPT/HCPCS: 76642; 77066; G0279

== ENCOUNTER → 2025-02-03 14:32 | Outpatient (CLI) | payer OTHER, BC, SELFPAY ==
[2025-02-03 20:35] LABS: Urine N gonorrhoeae NOT DETECTED
[2025-02-03 20:37] LABS: Urine Chlamydia NOT DETECTED
== END ==
PROVIDERS: PCP Physician Assistant; Visit Provider Obstetrics & Gynecology
DX: Z11.3 Encounter for screening for infections with a predominantly sexual mode of transmission (principal); Z3A.09 9 weeks gestation of pregnancy
CPT/HCPCS: 87491; 87591

== ENCOUNTER → 2025-02-12 08:45 | Outpatient (CLI) | payer OTHER, BC, SELFPAY ==
[2025-02-12 10:08] LABS: Natera Collection KIT TEST
[2025-02-12 10:32] LABS: Add Manual Diff / Slide Review NO; Basophils Absolute Auto 100 /uL (0-100); Basophils Percent Auto 1.2 % (0-2); Eosinophils Absolute Auto 0 /uL (0-450); Eosinophils Percent Auto 0.2 % (2-4); Hematocrit 42.4 % (36-46); Hemoglobin 14.5 g/dL (12.0-16.0); Lymphocytes Absolute Auto 2400 /uL (1100-4500); Lymphocytes Percent Auto 25.7 % (25-40); Mean Corpuscular HGB Conc 34.1 % (30-36); Mean Corpuscular Hemoglobin 30.9 PG (26-34); Mean Corpuscular Volume 90.6 fL (80-100); Monocytes Absolute Auto 700 /uL (0-900); Monocytes Percent Auto 7.4 % (3-14); Neutrophils Absolute Auto 6200 /uL (1500-7000); Neutrophils Percent Auto 65.5 % (50-75); Platelet Count 245 X10^3/uL (150-400); Red Blood Cell Count 4.68 X10^6/uL (4.0-5.2); White Blood Cell Count 9.5 X10^3/uL (4.5-11.0)
[2025-02-12 11:03] LABS: Hemoglobin A1C% w Est Avg Glu 4.5 % (4.0-6.0)
[2025-02-12 11:31] LABS: Hepatitis B Surface Antigen NEGATIVE s/c (NEGATIVE); Rubella Antibody IgG 48.7 IU/mL (>15)
[2025-02-12 11:49] LABS: HIV 1 & 2 Ab/Ag 4th Gen Combo NEGATIVE (NEGATIVE); Hep C Virus Ab w/Reflex Quant NEGATIVE s/c (NEGATIVE)
[2025-02-13 09:09] LABS: Varicella IgG Antibody Reactive (Non Reactive)
== END ==
PROVIDERS: PCP Physician Assistant; Referring Provider Obstetrics & Gynecology; Visit Provider Obstetrics & Gynecology
DX: O09.899 Supervision of other high risk pregnancies, unspecified trimester (principal); Z36.0 Encounter for antenatal screening for chromosomal anomalies; Z87.42 Personal history of other diseases of the female genital tract
CPT/HCPCS: 36415; 80055; 83036; 86787; 86803; 86850; 86900; 86901; 87086; 87389

== ENCOUNTER → 2025-03-02 17:32 | Outpatient (CLI) | payer OTHER, BC, SELFPAY | PROVIDERS: PCP Physician Assistant; Visit Provider Obstetrics & Gynecology | DX: R31.9 Hematuria, unspecified (principal); Z3A.12 12 weeks gestation of pregnancy | CPT/HCPCS: 87086 ==

== ENCOUNTER → 2025-03-31 14:36 | Outpatient (CLI) | payer OTHER, BC, SELFPAY | PROVIDERS: PCP Physician Assistant; Referring Provider Obstetrics & Gynecology; Visit Provider Obstetrics & Gynecology | DX: Z34.92 Encounter for supervision of normal pregnancy, unspecified, second trimester (principal) | CPT/HCPCS: 36415; 82105 ==

== ENCOUNTER → 2025-05-25 13:30 | Outpatient (CLI) | payer OTHER, BC, SELFPAY ==
[2025-05-25 15:39] LABS: GTT (PREG) 1 Hour PP 50gm Dose 127 mg/dL (76-139)
[2025-05-25 16:03] LABS: Hematocrit 32.4 % (36-46); Hemoglobin 11.3 g/dL (12.0-16.0)
== END ==
PROVIDERS: PCP Physician Assistant; Referring Provider Obstetrics & Gynecology; Visit Provider Obstetrics & Gynecology
DX: Z13.1 Encounter for screening for diabetes mellitus (principal); Z13.0 Encounter for screening for diseases of the blood and blood-forming organs and certain disorders involving the immune mechanism
CPT/HCPCS: 82950; 85014; 85018

== ENCOUNTER → 2025-07-13 17:11 | Outpatient (CLI) | payer OTHER, BC, SELFPAY ==
--- NOTE | 2025-07-13 17:12 | EKG_ITS ---
[facility] [address] [place] [address] Test Date: 2025-07-13 Pat Name: Nitza Israel Department: Room: Gender: Female Business Systems Administrator: : 1985 Requested By: Order Number: [id number] Reading MD: Aaron Crawford Measurements Intervals Muse Rate: 67 P: 23 CO: 124 QRS: 67 QRSD: 98 T: 24 QT: 416 QTc: 439 Interpretive Statements Normal sinus rhythm Incomplete right bundle branch block Electronically Signed On 07-13-2025 19:05:07 PST by Aaron Crawford
== END ==
PROVIDERS: PCP Physician Assistant; Referring Provider Obstetrics & Gynecology; Visit Provider Obstetrics & Gynecology
DX: O09.511 Supervision of elderly primigravida, first trimester (principal); R00.2 Palpitations; Z3A.31 31 weeks gestation of pregnancy
CPT/HCPCS: 93005